=== PATIENT | female | born 1940 | race Caucasian/White ===

== ENCOUNTER → 2019-05-17 | Outpatient (CLI) | payer OTHER ==
[~2019-05-17] VITALS: Ht 157.5 cm; Wt 52.2 kg
[~2019-05-17] MED LIST: ADULT LOW DOSE81 MG PO; BRAIN MIGHT-DH1 EACH PO; CITRACAL + BON1 EACH PO; CLARITIN10 MG PO; CO Q-10100 MG PO; GABAPENTIN100 MG PO; GLUCOSAMINE &1 EAC1 PO; METOCLOPRAMIDE10 MG PO; MULTIVITAMINS1 EAC7 PO; NEXIUM 40 MG CA40 M1 PO; NORTRIPTYLINE H25 M3 PO; NORVASC5 MG PO; OLOPATADINE HCL5 ML OPHTHALMIC; STOOL SOFTENER240 MG PO; SUPER B COMPLE1 EAC2 PO; SYNTHROID75 MCG PO; TIMOLOL MA0.25 %/52 OPHTHALMIC; ULTRAM 50MG TAB50 MG PO; VITAMIN D-32000 UNIT PO
--- NOTE | 2019-05-18 15:07 | PATH ---
[facility] [place] [address] PATHOLOGY RPT PROCEDURE Name: JENNY SMITH Room #: REG [facility] Gopi.#: [id number] Admission: 05/17/19 Date of : 42 Discharge: Report #: [id number] Path Case #: [id number] [facility] Accession Number: [id number] . 01 Material submitted: . PART A: stomach - BIOPSY GASTRITIS R/O H. PYLORI PART B: stomach - GASTRIC POLYP PART C: splenic flexure - POLYP AT SPLENIC FLEXURE PART D: colon - POLYP AT DISTAL TRANSVERSE COLON. Modifiers: distal, transverse PART E: cecum - POLYP AT CECUM . 01 Clinical history: . Pre-OP DX: Dysphagia, GERD, Hx polyps Post-OP DX: Gastritis, gastric polyp, esophagitis, colon polyps, diverticulosis, hemorrhoids and tags . 02 Diagnosis: A. Gastric mucosa, gastritis rule out H. pylori, endoscopic biopsy: - Two fragments with dilated fundic glands, compatible with fundic gland polyp showing no evidence of dysplasia. - Remainder of fragments showing mild reactive gastropathy. - Negative for intestinal metaplasia or atrophy. - Negative for Helicobacter pylori (properly controlled immunohistochemical stain performed). . B. Gastric polyps, endoscopic biopsy: - Fundic gland polyp. - Negative for dysplasia. . C. Polyp, at splenic flexure, endoscopic biopsy: - Tubular adenoma. - Negative for high-grade dysplasia. . D. Polyp at distal transverse colon, endoscopic biopsy: - Tubular adenoma, minute. - Negative for high-grade dysplasia. . E. Polyp at cecum, endoscopic biopsy: - Tubular adenoma. - Negative for high-grade dysplasia. . 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 02 Electronically signed: . Sandy Monk MD, Pathologist [address] [address] PATHOLOGY RPT PROCEDURE Name: JENNY SMITH Room #: REG CLI Sherri#: [id number] Admission: 05/17/19 Date of : 42 Discharge: Report #: [id number] Path Case #: [id number] NPI- [id number] . 01 Gross description: . A. Received in formalin labeled "Jenny Smith, BX gastritis, rule out H. pylori," are 6 segments of muro soft tissue measuring 1.5 x 1.0 x 0.2 cm in aggregate dimensions and ranging from 0.3 to 0.5 cm in maximum dimension. The specimen is submitted entirely in cassette A1. . B. Received in formalin labeled "Jenny Smith, gastric polyp," is a 0.8 x 0.6 x 0.5 cm polypoid piece of muro soft tissue. The margin is inked and the tissue is sectioned perpendicular to the margin and submitted entirely in cassette B1. . C. Received in formalin labeled "Jenny Smith, polyp at splenic flexure," is a single segment of muro soft tissue measuring 0.5 cm in maximum dimension. The specimen is entirely submitted in cassette C1. . D. Received in formalin labeled "Jenny Smith, polyp at distal transverse colon," is a single segment of muro soft tissue measuring 0.4 cm in maximum dimension. The specimen is entirely submitted in cassette D1. . E. Received in formalin labeled "Jenny Smith, polyp at cecum," are multiple segments of muro soft tissue measuring 1.9 x 0.6 x 0.1 cm in aggregate dimensions. The specimen is filtered and entirely submitted in cassette E1. (TSD; 05/17/2019) TOB/TOB 05/17/2019 [facility] Local . 02 Pathologist provided ICD-10: K31.7, K31.9, D12.3, D12.0 . 02 CPT . 044703, 986383, 115625, 545095, 984134, X85189 Specimen Comment: A courtesy copy of this report has been sent to Specimen Comment: [phone], . Specimen Comment: Report sent to / DR LOWERY Performed at: [address], [place] [id number] MD Carlo Bullock MD Phone: [phone] Performed at: [address] [id number] MD Sandy Monk MD Phone: [phone]
--- NOTE | 2019-05-20 07:29 | P ---
[facility] [address] [place] [address] PROCEDURE REPORT Name: JENNY SMITH Room #: [facility] [id number] Admission: 05/17/19 Attend Phys: Bubba Sánchez MD Discharge: Date of : 42 Report #: [id number] THIS REPORT FOR: //name// CC: Bubba LOWERY DATE OF SERVICE: 05/17/2019 BRIEF HISTORY: The patient is a 79-year-old woman with longstanding history of reflux disease, on PPI therapy who recently had increased symptoms of burning. She has also noted coughing while taking her PPI. PREOPERATIVE DIAGNOSIS: Increased reflux symptoms and cough on PPI therapy. POSTOPERATIVE DIAGNOSES: 1. Grade A esophagitis. 2. Multiple gastric ulcers, one with evidence of recent bleeding and ulceration. 3. Diffuse antral gastritis, mild. MEDICATIONS: Deep sedation with propofol per Anesthesia. SPECIMENS: 1. Biopsies of gastritis. 2. Gastric polyp. ESTIMATED BLOOD LOSS: 3 mL. PROCEDURE: EGD with snare polypectomy and biopsy. FINDINGS: Prior to propofol sedation, the procedure of upper endoscopy was discussed with the patient as well as potential risks and its complications. She indicates she understands and desires to proceed. DESCRIPTION OF PROCEDURE: With the patient in left lateral decubitus position, the Olympus video endoscope was inserted in the cervical esophagus under direct vision without difficulty. Examination of this organ through its entire length revealed normal esophageal mucosa down the squamocolumnar junction. Squamocolumnar junction was inspected. It was noted to be intact. Intermittently, a trivial less than 2 cm sliding type hiatus hernia was seen. Along the Z line on one aspect of the circumference, it appeared to be mildly eroded. There was no evidence of Benitez esophagus, strictures or masses. Scope was advanced in the stomach, was examined on end view as well as retroflexed views. There was erythema in the antrum, but no ulcers or erosions. Examination of the remainder of the stomach on end view as well as retroflexed [facility] [address] [place] [address] PROCEDURE REPORT Name: JENNY SMITH Room #: REG [facility]#: [id number] Admission: 05/17/19 Attend Phys: Bubba Sánchez MD Discharge: Date of : 42 Report #: [id number] views revealed no masses in the cardia. However, in the body of the stomach, there were multiple polyps, which were typical appearing polyps in a patient taking PPIs. None of them were more than a centimeter. However, one on the greater curvature aspect in the distal body was superficially eroded and there was stigmata of bleed in this area. It was not briskly bleeding. Since there is evidence of bleeding, it was removed by hot snare polypectomy and recovered with a Schreiber net. The pylorus, duodenal bulb, and postbulbar duodenal sweep were inspected and noted to be unremarkable. The papilla was well seen and noted to be unremarkable. At that point, the scope was slowly withdrawn and careful circumferential views confirmed the above findings. The patient tolerated the procedure well. CONDITION OF THE PATIENT UPON DISCHARGE: Following procedure, the patient drowsy. She was prepared for colonoscopy. INSTRUCTIONS TO THE PATIENT AND FAMILY AT THE TIME OF DISCHARGE: Since she does have esophagitis, recently had some symptoms including cough, we will have her increase her PPI to 40 mg of esomeprazole twice daily. She is to return to see me in followup in the office to discuss long-term management. We will follow up on biopsies and pathology obtained today. Proceed with colonoscopy. <ELECTRONICALLY SIGNED> By: Bubba Sánchez MD 05/20/19 0729 [id number] [id number] Bubba Sánchez MD /nt
--- NOTE | 2019-05-20 07:29 | P ---
[facility] [place] [address] [place] [address] PROCEDURE REPORT Name: JENNY SMITH [facility] #: [facility] [id number] Admission: 05/17/19 Attend Phys: Bubba Sánchez MD Discharge: Date of : 42 Report #: [id number] THIS REPORT FOR: //name// CC: Bubba Whiting DO OUTPATIENT COLONOSCOPY BRIEF HISTORY: The patient is a 78-year-old woman with a strong family history of colon cancer. Her father had colon cancer, I believe he was about 60. Four of her father's brothers had colon cancer and a sister had colon cancer and another sister had esophageal cancer. PREOPERATIVE DIAGNOSIS: High risk screening colonoscopy due to family history of colon cancer. POSTOPERATIVE DIAGNOSES: 1. Colon polyps. 2. Mild sigmoid diverticulosis coli. 3. Internal hemorrhoids with small tag. MEDICATIONS: Deep sedation with propofol per anesthesia. SPECIMENS: 1. Polyp, splenic flexure. 2. Polyp, distal transverse colon. 3. Polyp from cecum. ESTIMATED BLOOD LOSS: 3 mL. PROCEDURE: Colonoscopy to cecum and terminal ileum with snare polypectomy and biopsy. FINDINGS: Prior to propofol sedation, procedure of colonoscopy discussed with the patient as well as potential risks and its complications. She indicates she understands and desires to proceed. DESCRIPTION OF PROCEDURE: With the patient in left lateral decubitus position, digital examination was completed, which revealed no abnormalities. Subsequently, the Olympus video colonoscope was introduced in the rectum, advanced under direct vision to the cecum, done with minimal difficulty. The cecum was identified by the ileocecal valve and the appendiceal orifice. I was able to advance the scope across the ileocecal valve and visualize the distal segment of the terminal ileum, which was inspected and noted to be unremarkable. At that point, the scope was slowly withdrawn and careful circumferential views were obtained. Upon slow withdrawal of the scope, the prep was noted to be [facility] [address] [place] [address] PROCEDURE REPORT Name: POWERABHIJENNY Room #: REG [facility]#: [id number] Admission: 05/17/19 Attend Phys: Bubba Sánchez MD Discharge: Date of : 42 Report #: [id number] good. The mucosa was within normal limits, normal vascular pattern, normal light reflex. As we withdrew the scope, she was noted to have a flat polyp in the cecum. It was about 10-12 mm in length. A maximum width was about 4-5 mm. It was removed with 2 passes of a 10 mm cold polypectomy snare. One small fragment remained at one of the borders. This was cleaned up with biopsy forceps. The scope was further withdrawn and including retroflexing the ascending colon, no additional abnormalities were noted until the distal transverse colon was reached and a diminutive polyp was seen and removed with biopsy forceps. Scope was withdrawn further and at the splenic flexure, another diminutive polyp was seen and removed with biopsy forceps. The scope was further withdrawn and the mucosa remained normal. As we withdrew the scope back to the sigmoid colon, there was noted to be mild sigmoid diverticular disease with a few scattered diverticula. The scope was withdrawn in the rectum and no abnormalities were seen. However, upon retroflexion in the distal rectum, small hemorrhoids and a few anal tags were seen. Scope was withdrawn. The patient tolerated the procedure well. CONDITION OF THE PATIENT UPON DISCHARGE: Following procedure, the patient drowsy, aroused, conversant and will be discharged home when fully ambulatory. INSTRUCTIONS TO THE PATIENT AND FAMILY AT THE TIME OF DISCHARGE: Three polyps identified and removed as described above. We will follow up on the path and make further recommendations. However, in view of her strong family history and finding of polyps today including a piecemeal removal of a cecal polyp, I suggest she return in 3 years for high risk screening colonoscopy. <ELECTRONICALLY SIGNED> By: Bubba Sánchez MD 05/20/19 0729 1001 [id number] Bubba Sánchez MD /nt
== END | disposition home or self-care (01) ==
LOC: GI 07:27
DX: Z12.11 Encounter for screening for malignant neoplasm of colon (principal); Z80.0 Family history of malignant neoplasm of digestive organs; D12.3 Benign neoplasm of transverse colon; D12.0 Benign neoplasm of cecum; K57.30 Diverticulosis of large intestine without perforation or abscess without bleeding; K64.4 Residual hemorrhoidal skin tags; K64.8 Other hemorrhoids; K31.9 Disease of stomach and duodenum, unspecified; K31.7 Polyp of stomach and duodenum; K20.9 Esophagitis, unspecified; K44.9 Diaphragmatic hernia without obstruction or gangrene; K29.70 Gastritis, unspecified, without bleeding; K21.9 Gastro-esophageal reflux disease without esophagitis; I10 Essential (primary) hypertension; E03.9 Hypothyroidism, unspecified; Z98.41 Cataract extraction status, right eye; Z98.42 Cataract extraction status, left eye; Z87.891 Personal history of nicotine dependence; Z90.49 Acquired absence of other specified parts of digestive tract; Z98.890 Other specified postprocedural states; Z86.2 Personal history of diseases of the blood and blood-forming organs and certain disorders involving the immune mechanism; Z88.8 Allergy status to other drugs, medicaments and biological substances; Z79.82 Long term (current) use of aspirin; Z79.899 Other long term (current) drug therapy
CPT/HCPCS: 62110; 62900